=== PATIENT | female | born 1940 | race Caucasian/White ===

== ENCOUNTER 2016-04-29 15:34 | Inpatient (IN) | payer MEDICARE, OTHER ==
--- NOTE | ~2016-04-29 | CN ---
Consultation Report [facility] [address] [place]. [address] NAME: NAZARIO LEON : 42 STATUS : ADM IN PAT#: [id number] AGE: 75 ADM/REG DATE : 04/29/16 MR#: [id number] REPORT SERV DATE: 05/02/16 DICTATED BY: TRA BYRNE III DATE: 05/02/16 REPORT STATUS : Draft TRANSCRIBED BY: MODToshia DATE: 05/02/16 CONSULTATION AND FOLLOWUP DATE OF CONSULTATION: CONSULTATION DATES: 04/30/2016 and 05/02/2016. 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 She is admitted via the emergency room on 04/29/2016 with diagnosis of cellulitis in her left lower extremity. She also noted to have a long history of a surgery back in 10/2015, that was an open reduction internal fixation of a tibial fracture with knee immobilization and developed ulcers in her heel since that time period. Dr. Alfonso Anderson had done her surgery. She is a diabetic in fair control according to her . She is also on steroids as part of her home medications which include calcium carbonate, vitamin D3, Aricept, Lexapro, folic acid, hydrochlorothiazide, Lantus insulin 10 units daily, Imdur, levothyroxine, Cozaar, methotrexate, Prilosec, Livalo, potassium chloride, prednisone 10 mg daily, Seroquel, Xarelto 15 mg twice a day and to move up on 05/01/2016 to 20 mg daily. She also takes Lipo-Flavonoid. PAST MEDICAL HISTORY: She has a history of TIAs and dementia, has history Meniere's disease. She had CAB remotely x3, myocardial infarction, hypertension in the past, history of rheumatoid arthritis and gout. History of a cholecystectomy, appendectomy, diverticulitis, and gastroesophageal reflux disease. Past history of tubal ligation, right lumpectomy in the breast, frequent UTIs, diabetes mellitus, hypothyroidism, anxiety, and depression. She has a history of a bacterial septicemia back in 2012, shingles in 2011. PAST SURGICAL HISTORY: Include as has previously been stated on 11/01/2015 an internal fixation and open reduction of the tibial fracture after a fall. The right breast lumpectomy in 2009 with cholecystectomy in 1969, appendectomy in 1969. SOCIAL HISTORY: She lives at home with her spouse who is very attentive and helps manage her. PHYSICAL EXAMINATION: GENERAL: She is alert and oriented x2. CHEST: Relatively clear. HEART: Regular rate and rhythm with occasional extrasystole. ABDOMEN: Soft. EXTREMITIES: Left lower extremity was noted to have dry ulcers x2 in the heel and the medial one being 2 x 1.6 x 0.2 and the lateral one being 2.1 x 1.2 with a 0.2 depth. She had mild erythema of the ankle and calf that were 2+ tender with 1+ palpable pulses after edema was expressed. She has 3+ pitting edema of the foot and ankle. Right lower extremity with sore Consultation Report [facility] [id number] [facility] [place]. [address] NAME: NAZARIO LEON : 42 STATUS : ADM IN [facility]#: [id number] AGE: 75 ADM/REG DATE : 04/29/16 MR#: [id number] REPORT SERV DATE: 05/02/16 DICTATED BY: TRA BYRNE III DATE: 05/02/16 REPORT STATUS : Draft TRANSCRIBED BY: MODL DATE: 05/02/16 heel, but no ulcer, minimal edema, 2+ pulses. IMPRESSION: She has mild cellulitis of the left lower extremity. Since the admission, she has been noted to have a urinary tract infection with Escherichia coli that is only sensitive to meropenem and Zosyn, also has an enterococcus organism in her urine that is sensitive to ampicillin and prednisone. We will continue local therapy with compressive therapy to her lower extremity, but needs to be changed from her Ancef which she has been on for the last two to three days to better coverage which is forthcoming by the hospitalist service. I have continued to use to her heel Multi Podus brace to offload the area and nutritional support, certainly important for this patient's management. LUIS CARLOS/MARKIE Tra Byrne III, M.D. / [id number] CC: Adrienne Jeong M.D.
--- NOTE | ~2016-04-29 | HP ---
History And Physical [facility] [id number] [place]. [address] NAME: NAZARIO LEON : 42 STATUS : ADM IN [facility]#: [id number] AGE: 75 ADM/REG DATE : 04/29/16 MR#: [id number] REPORT SERV DATE: 04/29/16 DICTATED BY: YURI BROWN DATE: 04/29/16 REPORT STATUS : Draft TRANSCRIBED BY: MARKIE DATE: 04/29/16 DATE OF ADMISSION: 04/29/2016 CHIEF COMPLAINT: Chills with weakness. HISTORY OF PRESENT ILLNESS: The patient is a 75-year-old female with past medical history of diabetes, thyroid disorder, vascular dementia with fairly compensated coronary artery disease, CABG, insulin-dependent diabetes, and recurrent UTIs who presents after having weakness and chills today with episode of vomiting, nausea, symptoms have been continuous and generalized, but began early this morning. Severity is moderate without any pain or radiating symptoms. Did note to have fever, chills, nausea, vomiting, weakness. No diarrhea, diaphoresis, headache, shortness of breath, or cough. The patient had drainage of the left foot at the recent surgical site, is being followed by Wound Care, seen earlier this week, but today had acute drainage symptoms. There are no worsening symptoms appreciated, no relieving symptoms. Symptoms are actually slightly better after getting IV fluids. REVIEW OF SYSTEMS: Additional 10-point review of systems negative except that noted in HPI with; GENERAL: Including positive for weakness, fever, chills. EYES: No pain or visual changes. ENT: No sore throat or congestion. NEURO: No headache or confusion. SKIN: Did have drainage at ulcer site. No rash. RESPIRATORY: No shortness of breath or cough. CV: No chest pain or palpitations. GI: Did have nausea, vomiting. No abdominal pain. : No dysuria or hematuria. MUSCULOSKELETAL: No myalgias, arthralgias above baseline. ENDO: No gross fatigue or polyuria. HEME: No bleeding or bruising. IMMUNOLOGIC: No rhinorrhea reported. PSYCH: No anxiety or confusion. PAST MEDICAL HISTORY: Breast cancer, status post XRT and surgery, coronary artery disease, history of CABG, nonsustained ventricular tachycardia, history of diverticulitis, Staph bacteremia with prolonged hospitalization at [facility] secondary to cellulitis, history of reflux RA on chronic steroid and methotrexate, hypothyroidism, vitamin D deficiency, UTI, shingles, tibial plateau fracture with repair. SURGICAL HISTORY: CABG, lumpectomy, cholecystectomy tubal. SOCIAL HISTORY: Quit smoking 50 plus years ago. No drinking alcohol. . Accompanied by at bedside. Lives in [place] with three children. FAMILY HISTORY: Diabetes, hypertension. History And Physical [address] [address] NAME: NAZARIO LEON : 42 STATUS : ADM IN [facility]#: [id number] AGE: 75 ADM/REG DATE : 04/29/16 MR#: [id number] REPORT SERV DATE: 04/29/16 DICTATED BY: YURI BROWN DATE: 04/29/16 REPORT STATUS : Draft TRANSCRIBED BY: MARKIE DATE: 04/29/16 ALLERGIES: CODEINE, ASPIRIN. HOME MEDICATIONS: Caltrate, vitamin D, Aricept, Lexapro, folic acid, hydrochlorothiazide, Lantus, Imdur, levothyroxine, losartan, methotrexate, Prilosec, pitavastatin, Klor-Con, prednisone, Seroquel, Xarelto, Lipo-Flavonoid. PHYSICAL EXAMINATION: VITAL SIGNS: The patient blood pressure 97/55; temperature 98.5; pulse initially 109, currently to 77; respirations initially 22, down to 16; O2 saturations 99% on room air. GENERAL: No acute distress. Calm, pleasant. HEAD: Normocephalic, atraumatic. EYES: No scleral icterus. EOMI. ENT: Nares patent. Tongue midline. Moist mucous membranes. RESPIRATORY: Clear to auscultation. No wheezes or rales. CHEST: Equal chest expansion. CV: Regular rate. No rubs or gallops. Does have bilateral edema, left side greater than right chronically, that is about trace. GI: Soft, nontender, nondistended. Central obesity. : Deferred. MUSCULOSKELETAL: Left heel wound with oozing, does have barrier protection at this time. Erythema isolated to heel. Does have chronic deformities of the lower extremities. SKIN: Warm, dry. LYMPH: No cervical or supraclavicular lymphadenopathy. HEME: No bleeding or bruising. NEURO: Alert and oriented. Moves all extremities x4, but definitely notably approximately 3/5 strength in lower extremities. PSYCH: Appropriate mood and affect, pleasant. EKG normal sinus rhythm, rate of 89, QTc 467. Chest x-ray, no acute cardiopulmonary findings. Lactate 3.3. CMP: Sodium 140, potassium 4.0, chloride 103, bicarb 27, BUN and creatinine 16 and 1.3, glucose 226, albumin 2.7, AST and ALT 50 and 36, alkaline phosphatase 122, lipase 168. CBC: WBC count 7.7, H and H 11.5 and 37.1, platelets 233, INR 2.1. A1c of 8.9. ASSESSMENT AND PLAN: 1. Cellulitis. 2. Lactic acidosis. 3. Diabetes type 2. 4. Coronary artery disease. 5. Meniere disease. 6. Vascular dementia history. 7. Hypothyroidism. 8. Urinary tract infection history. PLAN: 1. For cellulitis IV antibiotics. Wound care evaluation with Dr. Byrne does have History And Physical [address] [address] NAME: NAZARIO LEON : 42 STATUS : ADM IN [facility]#: [id number] AGE: 75 ADM/REG DATE : 04/29/16 MR#: [id number] REPORT SERV DATE: 04/29/16 DICTATED BY: YURI BROWN DATE: 04/29/16 REPORT STATUS : Draft TRANSCRIBED BY: MARKIE DATE: 04/29/16 positive drainage, elevate left heel, does have mild lactic acidosis. Monitor for additional SIRS symptoms. 2. Lactic elevation a serially monitor lactate, treat underlying cellulitis. 3. Diabetes type 2. A1c has been increasing, sliding scale insulin low dose Levemir. The patient takes sporadic dose of Levemir and has had history of lows, will have diabetic education evaluation. 4. Coronary artery disease. Imdur, ARB, statin, not tolerate aspirin. 5. Meniere disease. Supportive. 6. Vascular dementia. Appears compensated. 7. Hypothyroidism, on replacement. 8. UTI history culture pending, but no UA specimen given yet, not acutely symptomatic except for possible chills, but no dysuria. POLST form completed with the patient, okay for chest compressions, CPR, but the patient is DNI. POLST on chart. All questions answered. The patient's family at bedside. RAMAN/MARKIE Yuri Brown MD / [id number] CC: MD Jeison Aaron M.D.
--- NOTE | ~2016-04-29 | DS ---
Discharge Summary [facility] [address] [place]. [address] NAME: NAZARIO LEON : 42 STATUS : ADM IN [facility]#: [id number] AGE: 75 ADM/REG DATE : 04/29/16 MR#: [id number] REPORT SERV DATE: 05/07/16 DICTATED BY: DIAN CENTENO DATE: 05/07/16 REPORT STATUS : Draft TRANSCRIBED BY: MODL DATE: 05/07/16 ADMISSION DATE: 04/29/2016 DISCHARGE DATE: 05/07/2016 FINAL HOSPITAL DIAGNOSES: 1. Cellulitis. 2. Urinary tract infection. 3. Diabetes. 4. Hypothyroidism. CONSULTATIONS: Dr. Byrne. PROCEDURES: None. CURRENT PHYSICAL FINDINGS AND HISTORY OF PRESENT ILLNESS: Please see dictated H and P by Dr. Medrano. In brief, the patient is a 75-year-old female, who presented with weakness and chills, nausea, vomiting and a wound on her left lower extremity. Vital signs at time of admission, BP was 97/55, the patient had a lowest blood pressure 78/44 on 04/30/2016 but has trended steadily upward since. No significant fever during this hospital stay. She has not been tachycardic outside her initial admission where she was in the low 100s. LAB WORK: Initial showed a BMP with a creatinine of 1.3, blood sugar was 226, lipase was 168, procalcitonin was 0.31, lactate was 3.3, white count was 7.7, INR was 2.1, although the patient is on anticoagulants. Initial urinalysis was cloudy with a large leukocyte esterase, greater than 182 WBCs and many bacteria. The patient was started on antibiotics for her foot. Repeat cath specimen was completely normal on 05/01/2016. However, in the interim, the patient grew out an ESBL, which was resistant to the antibiotic that she was currently on. She also grew out an Enterococcus, which may have responded to initial treatment. One of two blood cultures was positive for coagulase-negative staph, a probable contaminant. HOSPITAL COURSE: The patient was admitted. There was concern of sepsis given her lactate and her hypotension. She was placed on sliding scale coverage. She was initially placed on 2 g of Ancef, electrolyte protocol. IV fluids were administered. She was seen by Wound Care, Dr. Byrne, the following day, and wound care instructions were given. Dr. Rondon initially kept her further for several days in the hospital. Her IV fluids were stopped and she was placed on Demadex for some significant dependent edema, which she responded to well. Pharmacy continued to follow her antibiotics. I assumed her care on 05/01/2016 and was able to examine her wound. It did not appear that deep or purulent. A CBC and a procalcitonin were also checked in case ESBL was the underlying pathogen for her sepsis. It was elected to start her on coverage for the ESBL on 05/02/2016. She started Zosyn which was satisfactory for her wound care coverage too. She was titrated back onto her hydrochlorothiazide, the diuretic that she had been on previously. Her electrolytes were followed. The patient had no other problems or complications during her hospital stay and was discharged with instructions given earlier by Dr. Byrne for wound care followup. We will ask that she follow up with her PCP in a week as her has been giving her Discharge Summary [address] [address] NAME: NAZARIO LEON : 42 STATUS : ADM IN PAT#: [id number] AGE: 75 ADM/REG DATE : 04/29/16 MR#: [id number] REPORT SERV DATE: 05/07/16 DICTATED BY: DIAN CENTENO DATE: 05/07/16 REPORT STATUS : Draft TRANSCRIBED BY: MARKIE DATE: 05/07/16 Levemir and Lantus apparently at night based on blood sugar and sliding scale. We are also placing her back on her diuretic as we would appreciate some renal and electrolyte followup and certainly to keep track of her cellulitis and/or recheck her urine to see if the UTI was cleared, ESBL may be colonization, but she was treated. MEDICATIONS: Caltrate 600 at bedtime; vitamin D 1000; Aricept 5; Lexapro 15; hydrochlorothiazide 25; Lantus, I have instructed her to give the medication as prescribed by the MD, our records are she is doing 25 when her blood sugars greater than 150 at bedtime with a sliding scale and 10 units in the morning when she is over 150; Synthroid 100, Cozaar 25, methotrexate 12.5, Prilosec 20; potassium 20; Livalo 2 mg; Seroquel 25 b.i.d. with 100 at bedtime; Xarelto 20 mg daily; prednisone 10, Lipo-Flavonoid; folic acid 1 mg; and Imdur 30 TLF/MODL Dian Centeno M.D. / [id number] CC: Adrienne Jeong M.D.
[2016-04-29 12:35] LABS: BASOPHILS 0.3 %; BASOPHILS ABSOLUTE 0.02 10/3/uL (0.0-0.16); EOSINOPHILS 0.9 %; EOSINOPHILS ABSOLUTE 0.07 10/3/uL (0.0-0.53); ER CBC TAT 0 Hrs 05 Mins; HEMATOCRIT 37.1 % (36.0-48.0); HEMOGLOBIN 11.5 g/dL (12.0-16.0); IMMATURE GRANULOCYTES 0.3 %; IMMATURE GRANULOCYTES ABSOLUTE 0.02 10/3/uL (0.0-0.11); LYMPHOCYTES 31.3 %; MANUAL DIFF NO %; MEAN CORPUSCULAR HEMOGLOB 29.9 pg (26.0-34.0); MEAN CORPUSCULAR VOLUME 96.4 fL (80-100); MEAN PLATELET VOLUME 10.7 fL (9.2-13.0); MONOCYTES 2.7 %; MONOCYTES ABSOLUTE 0.21 10/3/uL (0.21-1.20); NEUTROPHILS 64.5 %; NEUTROPHILS ABSOLUTE 4.96 10/3/uL (2.02-8.40); PLATELET COUNT 233 10/3/uL (150-400); RBC DISTRIBUTION WIDTH 17.4 % (12.0-16.0); RED CELL COUNT 3.85 10/6/uL (4.0-5.6); WHITE BLOOD CELLS 7.7 10/3/uL (4.5-10.5)
[2016-04-29 12:42] LABS: PARTIAL THROMBO TIME 29.8 SEC (22.5-37.2)
[2016-04-29 12:43] LABS: INTERNATIONAL NORMAL RATI 2.1 UNITS (-)
[2016-04-29 12:45] LABS: PROTIME (NOT ORD) 23.3 SEC (12.0-14.5)
[2016-04-29 12:51] LABS: ALBUMIN 2.7 G/DL (3.5-5.0); CALCIUM, SERUM 9.1 MG/DL (8.5-10.4); CHLORIDE, SERUM 103 MMOL/L (96-112); CO2 (CARBON DIOXIDE) 27 MMOL/L (24-34); GFR AFRICAN AMERICAN 47 ML/MIN (>=60); GFR NON AFRICAN AMERICAN 40 ML/MIN (>=60); SGOT(AST) 50 U/L (5-40); SGPT(ALT) 36 U/L (5-65); SODIUM, SERUM 140 MMOL/L (135-148); TOTAL PROTEIN 6.7 G/DL (6.0-8.5)
[2016-04-29 12:52] LABS: A/G RATIO 0.7 (0.7-1.9); ALKALINE PHOSPHATASE 122 U/L (45-117); BUN (BLOOD UREA NITROGEN) 16 MG/DL (6-23); GLUCOSE, SERUM 226 MG/DL (60-99)
[2016-04-29 12:53] LABS: LACTATE 3.3 MMOL/L (0.3-2.4)
[~2016-04-29 15:34] MED LIST: APRES25 PO; ARICEPT5 PO; BRINT10T PO; CALCIUM PO; CALTRA600D PO; CALTRAT600 PO; COMPOUNDED CREAM V; COZ25 PO; COZ50 PO; FOLIC PO; HUMALOG 50/50; HUMALOG 50/50 SC; HYDROCHLOROT25 MG PO; IMDUR30 PO; KLOR-CON M2020 MEQ PO; LANTUS SC; LANTUSCART SC; LEVEMIR SC; LEVOTHYROXIN100 MCG PO; LEVOTHYROXIN88 MCG PO; LEXAPRO5 MG PO; LIPOFLAVONOID PO; LIVALO2 MG PO; MTX2.5 PO; OMNICEF300 PO; P10 PO; P5 PO; POTASSIUM PO; PRILO PO; SEROQUEL1C PO; SEROQUEL25 PO; SYN88 PO; TREXALL10 MG PO; ULTRAM50 PO; V2 PO; V5 PO; VITAMIN D1000 UNI1 PO; VITAMIN D2000 UNIT PO; VITAMIN D31000 UNIT PO; XARELTO15 MG PO; XARELTO20 MG PO; [UNRECOGNIZED DRUG - OTHER] PO
[2016-04-29 16:51] LABS: ASCORBIC ACID (UR NOT ORDER) NEG (NEG); BILIRUBIN, URINE NEGATIVE (NEG); ER URINALYSIS TAT 0 Hrs 15 Mins; KETONE, URINE TRACE MG/DL (NEG); LEUKOCYTE ESTERASE(NOT OR LARGE (NEG); NITRITE (URINE) NEG (NEG); WBC (NOT ORDERED) (RFLEX) > 182 (0-5)
[2016-04-29 17:55] LABS: BASOPHILS 0.3 %; BASOPHILS ABSOLUTE 0.02 10/3/uL (0.0-0.16); EOSINOPHILS 1.7 %; EOSINOPHILS ABSOLUTE 0.11 10/3/uL (0.0-0.53); HEMOGLOBIN 10.2 g/dL (12.0-16.0); IMMATURE GRANULOCYTES 0.3 %; IMMATURE GRANULOCYTES ABSOLUTE 0.02 10/3/uL (0.0-0.11); LYMPHOCYTES 38.6 %; LYMPHOCYTES ABSOLUTE 2.46 10/3/uL (0.67-4.30); MEAN CORPUS HGB CONC 31.2 g/dL (32.0-36.0); MEAN CORPUSCULAR HEMOGLOB 30.2 pg (26.0-34.0); MEAN CORPUSCULAR VOLUME 96.7 fL (80-100); MEAN PLATELET VOLUME 10.6 fL (9.2-13.0); MONOCYTES 3.8 %; MONOCYTES ABSOLUTE 0.24 10/3/uL (0.21-1.20); NEUTROPHILS 55.3 %; NEUTROPHILS ABSOLUTE 3.53 10/3/uL (2.02-8.40); PLATELET COUNT 200 10/3/uL (150-400); RBC DISTRIBUTION WIDTH 17.4 % (12.0-16.0); RED CELL COUNT 3.38 10/6/uL (4.0-5.6); WHITE BLOOD CELLS 6.4 10/3/uL (4.5-10.5)
[2016-04-29 17:57] LABS: HEMATOCRIT 32.7 % (36.0-48.0); MANUAL DIFF NO %
[2016-04-29 18:07] LABS: A/G RATIO 0.7 (0.7-1.9); ALBUMIN 2.2 G/DL (3.5-5.0); BUN (BLOOD UREA NITROGEN) 17 MG/DL (6-23); CHLORIDE, SERUM 106 MMOL/L (96-112); CO2 (CARBON DIOXIDE) 24 MMOL/L (24-34); CREATININE 1.25 MG/DL (0.55-1.02); GFR AFRICAN AMERICAN 49 ML/MIN (>=60); GFR NON AFRICAN AMERICAN 42 ML/MIN (>=60); GLOBULIN 3.3 G/DL (2.5-4.1); GLUCOSE, SERUM 239 MG/DL (60-99); POTASSIUM, SERUM 3.8 MMOL/L (3.5-5.3); SODIUM, SERUM 140 MMOL/L (135-148); TOTAL PROTEIN 5.5 G/DL (6.0-8.5)
[2016-04-29 18:08] LABS: ALKALINE PHOSPHATASE 99 U/L (45-117); CALCIUM, SERUM 8.1 MG/DL (8.5-10.4); SGOT(AST) 35 U/L (5-40); SGPT(ALT) 30 U/L (5-65); TOTAL BILIRUBIN 0.5 MG/DL (0-1.2)
[2016-04-30 07:08] LABS: BASOPHILS 0.4 %; BASOPHILS ABSOLUTE 0.02 10/3/uL (0.0-0.16); EOSINOPHILS 1.9 %; HEMATOCRIT 31.3 % (36.0-48.0); HEMOGLOBIN 9.9 g/dL (12.0-16.0); IMMATURE GRANULOCYTES 0.2 %; IMMATURE GRANULOCYTES ABSOLUTE 0.01 10/3/uL (0.0-0.11); LYMPHOCYTES 38.1 %; LYMPHOCYTES ABSOLUTE 2.03 10/3/uL (0.67-4.30); MEAN CORPUS HGB CONC 31.6 g/dL (32.0-36.0); MEAN CORPUSCULAR HEMOGLOB 31.3 pg (26.0-34.0); MEAN CORPUSCULAR VOLUME 99.1 fL (80-100); MONOCYTES 6.9 %; MONOCYTES ABSOLUTE 0.37 10/3/uL (0.21-1.20); NEUTROPHILS 52.5 %; PLATELET COUNT 148 10/3/uL (150-400); RBC DISTRIBUTION WIDTH 17.2 % (12.0-16.0); RED CELL COUNT 3.16 10/6/uL (4.0-5.6); WHITE BLOOD CELLS 5.3 10/3/uL (4.5-10.5)
[2016-04-30 07:10] LABS: MANUAL DIFF NO %
[2016-04-30 07:26] LABS: BUN (BLOOD UREA NITROGEN) 17 MG/DL (6-23); CHLORIDE, SERUM 112 MMOL/L (96-112); CO2 (CARBON DIOXIDE) 19 MMOL/L (24-34); CREATININE 1.03 MG/DL (0.55-1.02); GFR AFRICAN AMERICAN 62 ML/MIN (>=60); GFR NON AFRICAN AMERICAN 54 ML/MIN (>=60); GLUCOSE, SERUM 140 MG/DL (60-99); POTASSIUM, SERUM 3.8 MMOL/L (3.5-5.3); SODIUM, SERUM 141 MMOL/L (135-148)
[2016-05-01 07:48] LABS: BUN (BLOOD UREA NITROGEN) 18 MG/DL (6-23); CALCIUM, SERUM 8.1 MG/DL (8.5-10.4); CHLORIDE, SERUM 108 MMOL/L (96-112); CO2 (CARBON DIOXIDE) 27 MMOL/L (24-34); CREATININE 1.12 MG/DL (0.55-1.02); GFR AFRICAN AMERICAN 56 ML/MIN (>=60); GFR NON AFRICAN AMERICAN 48 ML/MIN (>=60); GLUCOSE, SERUM 122 MG/DL (60-99); POTASSIUM, SERUM 3.2 MMOL/L (3.5-5.3); SODIUM, SERUM 146 MMOL/L (135-148)
[2016-05-01 16:48] LABS: ASCORBIC ACID (UR NOT ORDER) NEG (NEG); BILIRUBIN, URINE NEGATIVE (NEG); KETONE, URINE NEGATIVE (NEG); LEUKOCYTE ESTERASE(NOT OR NEG (NEG); WBC (NOT ORDERED) (RFLEX) 1 (0-5)
[2016-05-02 08:57] LABS: CALCIUM, SERUM 8.4 MG/DL (8.5-10.4); CHLORIDE, SERUM 104 MMOL/L (96-112); CREATININE 1.12 MG/DL (0.55-1.02); GFR AFRICAN AMERICAN 56 ML/MIN (>=60); GFR NON AFRICAN AMERICAN 48 ML/MIN (>=60); GLUCOSE, SERUM 99 MG/DL (60-99); POTASSIUM, SERUM 3.8 MMOL/L (3.5-5.3); SODIUM, SERUM 144 MMOL/L (135-148)
[2016-05-02 08:58] LABS: BUN (BLOOD UREA NITROGEN) 22 MG/DL (6-23); CO2 (CARBON DIOXIDE) 33 MMOL/L (24-34)
[2016-05-02 17:29] LABS: BASOPHILS 0.2 %; BASOPHILS ABSOLUTE 0.01 10/3/uL (0.0-0.16); EOSINOPHILS 0.2 %; EOSINOPHILS ABSOLUTE 0.01 10/3/uL (0.0-0.53); HEMOGLOBIN 11.2 g/dL (12.0-16.0); IMMATURE GRANULOCYTES 0.4 %; IMMATURE GRANULOCYTES ABSOLUTE 0.02 10/3/uL (0.0-0.11); LYMPHOCYTES 21.5 %; LYMPHOCYTES ABSOLUTE 1.19 10/3/uL (0.67-4.30); MEAN CORPUSCULAR HEMOGLOB 31.2 pg (26.0-34.0); MEAN CORPUSCULAR VOLUME 97.5 fL (80-100); MEAN PLATELET VOLUME 10.3 fL (9.2-13.0); MONOCYTES 9.2 %; MONOCYTES ABSOLUTE 0.51 10/3/uL (0.21-1.20); NEUTROPHILS 68.5 %; PLATELET COUNT 177 10/3/uL (150-400); RBC DISTRIBUTION WIDTH 16.5 % (12.0-16.0); RED CELL COUNT 3.59 10/6/uL (4.0-5.6); WHITE BLOOD CELLS 5.5 10/3/uL (4.5-10.5)
[2016-05-02 17:37] LABS: MANUAL DIFF NO %
[2016-05-05 06:10] LABS: BUN (BLOOD UREA NITROGEN) 29 MG/DL (6-23); CALCIUM, SERUM 9.1 MG/DL (8.5-10.4); CHLORIDE, SERUM 107 MMOL/L (96-112); CO2 (CARBON DIOXIDE) 27 MMOL/L (24-34); CREATININE 1.16 MG/DL (0.55-1.02); GFR AFRICAN AMERICAN 54 ML/MIN (>=60); GFR NON AFRICAN AMERICAN 46 ML/MIN (>=60); GLUCOSE, SERUM 184 MG/DL (60-99); POTASSIUM, SERUM 3.9 MMOL/L (3.5-5.3); SODIUM, SERUM 143 MMOL/L (135-148)
[2016-05-05 06:35] LABS: BASOPHILS 0.2 %; BASOPHILS ABSOLUTE 0.02 10/3/uL (0.0-0.16); EOSINOPHILS 1.6 %; EOSINOPHILS ABSOLUTE 0.14 10/3/uL (0.0-0.53); HEMATOCRIT 32.7 % (36.0-48.0); HEMOGLOBIN 10.5 g/dL (12.0-16.0); IMMATURE GRANULOCYTES 0.6 %; IMMATURE GRANULOCYTES ABSOLUTE 0.05 10/3/uL (0.0-0.11); LYMPHOCYTES 39.2 %; LYMPHOCYTES ABSOLUTE 3.36 10/3/uL (0.67-4.30); MEAN CORPUS HGB CONC 32.1 g/dL (32.0-36.0); MEAN CORPUSCULAR HEMOGLOB 30.6 pg (26.0-34.0); MEAN CORPUSCULAR VOLUME 95.3 fL (80-100); MEAN PLATELET VOLUME 10.7 fL (9.2-13.0); MONOCYTES 11.2 %; MONOCYTES ABSOLUTE 0.96 10/3/uL (0.21-1.20); NEUTROPHILS 47.2 %; NEUTROPHILS ABSOLUTE 4.05 10/3/uL (2.02-8.40); RBC DISTRIBUTION WIDTH 16.5 % (12.0-16.0); RED CELL COUNT 3.43 10/6/uL (4.0-5.6)
[2016-05-05 06:40] LABS: MANUAL DIFF NO %; PLATELET COUNT 245 10/3/uL (150-400); WHITE BLOOD CELLS 8.6 10/3/uL (4.5-10.5)
[2016-05-07] MEDS ORDERED: NORCO1 TA1 PO (16:24)
== END 2016-05-07 17:25 | disposition home or self-care (01) | DRG 638 ==
LOC: ER 15:34 → 4SO 15:53
PROVIDERS: Emergency Medicine; Internal Medicine; Student in an Organized Health Care Education/Training Program; Surgery
DX: E11.621 Type 2 diabetes mellitus with foot ulcer (principal); L97.429 Non-pressure chronic ulcer of left heel and midfoot with unspecified severity; E87.2 Acidosis; L03.116 Cellulitis of left lower limb; Z79.4 Long term (current) use of insulin; Z79.01 Long term (current) use of anticoagulants; Z79.52 Long term (current) use of systemic steroids; I25.10 Atherosclerotic heart disease of native coronary artery without angina pectoris; Z95.1 Presence of aortocoronary bypass graft; Z87.891 Personal history of nicotine dependence; K21.9 Gastro-esophageal reflux disease without esophagitis; Z88.8 Allergy status to other drugs, medicaments and biological substances; Z88.5 Allergy status to narcotic agent; H81.09 Meniere's disease, unspecified ear; I67.2 Cerebral atherosclerosis; F01.50 Vascular dementia, unspecified severity, without behavioral disturbance, psychotic disturbance, mood disturbance, and anxiety; Z87.440 Personal history of urinary (tract) infections; E03.9 Hypothyroidism, unspecified; B95.2 Enterococcus as the cause of diseases classified elsewhere; I25.2 Old myocardial infarction; D64.9 Anemia, unspecified; E11.649 Type 2 diabetes mellitus with hypoglycemia without coma
CPT/HCPCS: 71020; 80048; 80053; 81001; 82962; 83605; 83690; 83735; 84132; 84145; 85025; 85610; 85730; 87040; 87070; 87077; 87086; 87150; 87186; 87205; 93005; 96374; 97116-GP; 97162-GP; 99285; A9270-GY; G8978-CK-GP; G8979-CJ-GP; J0690; J2543; J8610